=== PATIENT | female | born 1945 | race Caucasian/White ===

== ENCOUNTER 2017-12-30 17:32 | Inpatient (IN) | payer OTHER ==
[~2017-12-30] VITALS: Ht 170.2 cm; Wt 76.7 kg
[~2017-12-30 17:32] MED LIST: ALPRAZOLAM PO; CRESTOR20 MG PO; DYAZIDE 37.5-21 EACH PO; FENTANYL PATCH75 MCG TP; FLONASE 0.05%50 MCG NS; LOTENSIN10 MG PO; MS CONTIN 100100 MG PO; NORCO 10-325 T1 EACH PO; NORVASC10 MG PO; OXYCONTIN CR 1010 M1 PO; PRILOSEC 10MG C10 MG PO; VISTARIL 25 MG25 M1 GT; XANAX XR1 MG PO; ZPAK PO
[2017-12-30 17:53] LABS: ABSOLUTE EOSINOPHILS 0.1 thou/uL (0.0-0.7); ABSOLUTE MONOCYTES 0.3 thou/uL (0.0-1.2); BASOPHILS 1.2 %; EOSINOPHILS 1.5 %; HEMATOCRIT 39.6 % (37.0-47.0); LYMPHOCYTES 30.8 %; MCH 30.1 pg (26.0-34.0); MCHC 32.7 g/dL (28.0-37.0); MCV 92.1 fL (80.0-100.0); MONOCYTES 8.8 %; MPV 7.9 fl. (7.2-11.1); NUCLEATED RBCS 0 /100WBC; PLATELET COUNT* 160 thou/uL (150-400); POLYS 57.7 %; WBC 3.4 thou/uL (4.0-11.0)
[2017-12-30 18:07] LABS: CALCIUM 8.2 mg/dL (8.5-10.1); CREATININE 0.7 mg/dL (0.6-1.3); POTASSIUM 4.2 mmol/L (3.5-5.1)
[2017-12-30 18:11] LABS: ALBUMIN 3.3 g/dL (3.4-5.0); TOTAL BILIRUBIN 0.3 mg/dL (<0.1-1.0); TOTAL PROTEIN 6.8 g/dL (6.4-8.2)
[2017-12-30 18:31] LABS: URINE BILIRUBIN NEGATIVE (Negative); URINE BLOOD NEGATIVE (Negative); URINE CLARITY CLEAR; URINE COLOR YELLOW; URINE GLUCOSE-RANDOM NEGATIVE (Negative); URINE KETONES NEGATIVE (Negative); URINE LEUKOCYTES-REFLEX NEGATIVE (Negative); URINE NITRITE-REFLEX NEGATIVE (Negative); URINE PROTEIN NEGATIVE (Negative); URINE UROBILINOGEN 0.2 E.U./dl (0.2-1.0)
[2017-12-30 21:13] VITALS: BP 128/59
[2017-12-30 22:00] VITALS: BP 141/58
--- NOTE | 2017-12-30 23:41 | NUR ---
REPORT RECEIVE FROM NURSE. PT ADMITTED ON THE TELE FLOOR ACCOMPANIED BY ER NURSE ON A WHEELCHAIR. PT CURRENTLY HAD BOOTS ON RIGHT LEG WHICH SHE SAYS SHE WANTED OFF SINCE SHE WILL BE LIYING IN BED AND NOT WALKING. PT IS ALERT AWAKE ORIENTED X 4. SINUS RYTHM ON THE DIRECTOR OF PROMOTIONS. VS ARE WITHIN NORMAL LIMIT. PT STATES SHE WAS SLEEPING AT HER APARTMENT AND FELL WHEN SHE GOT UP TO WALK. HER RIGHT FOOT CURLED. AND SHE ENDED UP ON THE JARRETT. SHE WAS THEN BROUGHT TO THE ER BY EMS. SHE IS CONCERNED ABOUT HOW TO GET IN TOUCH WITH HER DAUGHTER WHOM SHE HAS FORGOTTEN THE PHONE NUMBER. PT WAS PROVIDED WITH HER APARTMENT COMMUNITY NUMBER SO SHE CAN CALL TOMORROW MORNING IN ORDER TO GET A TOUCH WITH HER FAMILY. PT ALSO WANTS HER EYE DROPS TONIGHT. DR DACOSTA WAS PAGED FOR ORDER. NO CALL RECEIVED UNTILL NOW. WILL PUT EYE DROP ORDER ON [employer]. MORPHINE WAS GIVEN .FALL PRECAUTION IN PLACE. CALL LIGHT AT REACH. WILL CONTINUE TO MONITOR.
[2017-12-31 04:00] VITALS: BP 113/53
--- NOTE | 2017-12-31 05:44 | NUR ---
PT WAS SILENTED AFTER ADMINISYRATUIB IB THIS]]] TEHN
--- NOTE | 2017-12-31 07:02 | NUR ---
EYE DROPS MEDICINE WERE ADMINISTERED PT DESIRED. PT SLEPT DURING THE NIGHT. SHE GOT UP WITH ONE ASSIST TO THE BEDSIDE COMMODE. SHE REMAINS FREE FROM FALL. AND CALL LIGHT AT REACH. SHE IS CONCERNED ABOUT TRANSPORTATION AT TIME OF DICHARGE SINCE PT SOES NOT HAVE ANY FAMILY MEMBERS TO PICK HER UP. WILL COMMUNICATE CONCERN TO DAY SHIFT NURSE SO CASE MANAGEMENT CAN KNOW.
[2017-12-31 08:04] VITALS: BP 168/98
--- NOTE | 2017-12-31 10:26 | NUR ---
ASSUMED CARE OF PT THIS AM AROUND 0715- ORE MIXER IN PLACE ORDERED, TRACING SR- UPON ASSESSMENT PT NOTED TO BE RESTING IN BED- PT A&O X4-CONTINENT OF BOWEL AND BLADDER- MINIMAL ASSIST WITH TRANSFERS NOTED TO COMMODE, CAM BOOT IN PLACE INDICATED- LCTA, RESP EVEN AND UN-LABORED- VSS, O2 SAT 99% ON RA- ABDOMEN SOFT/ROUND/NON-TENDER, BS X4 QUADS- PT REPORTS LAST BM X2 DAYS AGO- IV NOTED TO LEFT AC INTACT AND SL-GOOD PO INTAKE NOTED THIS AM WITH BREAKFAST- RIGHT LLE WEAKNESS NOTED R/T FX, CAM BOOT IN PLACE- PT/OT CONSULT INITIATED INDICATED-PT REPORTS PAIN 8/10 TO RIGHT FOOT, PRN HYDROCODONE AND SCHEDULED OXY GIVEN THIS AM PER PT REQUEST- PT REPORTS MEDICATION TO BE EFFECTIVE- CALL LIGHT AND PERSONAL BELONGINGS WITH IN REACH- HOURLY ROUNDS IN PLACE R/T SAFETY/NEEDS- ALL NEEDS MET AT THIS TIME-WCTM
--- NOTE | 2017-12-31 11:03 | NUR ---
Pt is A&O. Resides at [facility]. Independent. No Dme. No hx of HH or SNF. Anticipate dc soon. Pt will need HH [place], dc emergency planner to speak with Pt regarding HH options. Following.
[2017-12-31 11:41] VITALS: BP 122/57
--- NOTE | 2017-12-31 12:56 | EKG ---
[place] [address] ELECTROCARDIOGRAM REPORT Name: AMY GENAO Room: [address] ADM IN M.R.#: [id number] Admission: 12/30/17 Attend Phys: Titus Hayward Discharge: Date of : 41 Report #: [id number] THIS REPORT FOR: //name// [facility] ED Test Date: 2017-12-30 Test Time: 17:55:43 Pat Name: AMY GRANTNIE Department: Room: [facility] Gender: F Alemite Operator: TRESSA : 1945 Requested By: Joy Fernández Order Number: [id number] MD: Lloyd Tee Measurements Intervals [place] Rate: 74 P: 39 VA: 166 QRS: 12 QRSD: 85 T: 13 QT: 410 QTc: 455 Interpretive Statements Sinus rhythm Probable left atrial enlargement No previous ECG available for comparison Electronically Signed On 12-31-2017 12:56:07 CDT by Lloyd Tee [email or web address] <ELECTRONICALLY SIGNED> By: Lloyd Tee MD, [facility] 12/31/17 1256 1755 1755 Lloyd Tee MD, FAC /EPI
[2017-12-31] MEDS ORDERED: XANAX1 MG PO (14:36)
[2017-12-31] MEDS ORDERED: FLONASE 0.05%50 MCG NASAL (14:38)
[2017-12-31] MEDS ORDERED: VISTARIL 25 MG25 M1 PO (14:40)
[2017-12-31 14:41] VITALS: BP 122/57
[2017-12-31 15:12] VITALS: BP 122/57
[2017-12-31 15:44] VITALS: BP 136/66
--- NOTE | 2017-12-31 16:09 | NUR ---
RADIO PRESENTER SPOKE TO PATIENT TO DISCUSS DISCHARGE PLANNING NEEDS AND HH AT D/C. [facility]OSE [facility] FOR [facility]. RADIO PRESENTER SPOKE TO KIRILL WITH [facility] TO INFORM OF HH REFERRAL AND FAXED PATIENTS D/C ORDERS. VARINDEREK TO KIRILL WITH [facility] TO INFORM OF THE DME REFERRAL AND FAXED ORDER FOR WALKER. PATIENT REQUEST ASSIST WITH TRANSAPORT. RADIO PRESENTER SETUP TRANSPORTATION WITH [facility] FOR [phone]. CM WILL REMAIN AVIALABLE TO ASSIST AND FOLLOW NEEDED.
--- NOTE | 2017-12-31 16:39 | NUR ---
CANCEL ORDERS RECIEVED AFTER O.T. EVAL WAS COMPLETE. RECOMMEND NEW O.T. ORDERS IF PT. STAYS IN HOSPITAL TO RESUME DUE TO PT. NEEDING TO WORK ON ADAPTIVE ADLS WITH CAM BOOT IN PLACE.
--- NOTE | 2017-12-31 16:47 | NUR ---
PT/OT HERE TO WORK WITH PT THIS WITH EDUCATION GIVEN PRIOR TO D/C- PRESCIPTION NOTED FOR WALKER TO AMBULATION WITH CAM BOOT WITH AMBULATION- WALKER SET UP AND DELIVERED HERE TO FACILITY PRIOR TO D/C- OKAY FOR D/C HOME WITH HH PER THIS SHIFT- HH SET UP PER CM- IV TO LEFT AC D/C'D PRIOR TO D/C ALONG WITH GIFT CONSULTANT PRIOR TO D/C- D/C EDUCATION/TEACHING GIVEN TO PT PRIOR TO D/C WITH ALL QUESTIONS AND CONCERNS ADDRESSED- WRITTEN EDUCAITON PROVIDED PRIOR TO D/C-BELONGINGS PACKED AND ACCOUNTED FOR PER PT AND TECH-PT JAYCOB RESTING IN BED AWAITTING W/C VAN FOR TRANSPORTATION BACK TO APARTMENT- ALL NEEDS MET AT THIS TIME-WCTM
[2018-01-01 02:06] LABS: GLYCOHEMOGLOBIN (HGB A1C) 5.2 % (4.8-5.6)
== END 2017-12-31 17:00 | disposition home health service (06) | DRG 563 ==
LOC: M.ERS 17:32 → M.TBA-ER 19:46 → M.2W 19:46
PROVIDERS: Internal Medicine; Personal Emergency Response Attendant; ADMIT Internal Medicine
DX: S92.351A Displaced fracture of fifth metatarsal bone, right foot, initial encounter for closed fracture (principal); I10 Essential (primary) hypertension; M54.5 Low back pain; G89.29 Other chronic pain; F41.9 Anxiety disorder, unspecified; K21.9 Gastro-esophageal reflux disease without esophagitis; W01.0XXA Fall on same level from slipping, tripping and stumbling without subsequent striking against object, initial encounter; Y93.89 Activity, other specified; Y92.098 Other place in other non-institutional residence as the place of occurrence of the external cause; Y99.8 Other external cause status; Z85.3 Personal history of malignant neoplasm of breast; Z90.11 Acquired absence of right breast and nipple; Z79.899 Other long term (current) drug therapy; Z88.0 Allergy status to penicillin